=== PATIENT | male | born 1960 | race African-American/Black ===

== ENCOUNTER 2020-07-16 21:20 | Inpatient (IN) | payer MEDICARE, OTHER ==
[~2020-07-16] VITALS: Ht 182.9 cm; Wt 111.1 kg
[2020-07-16] MEDS ORDERED: MAGNESIUM HYDROXIDE 30 ML UDC PO PRN (23:30)
[2020-07-16] MEDS ORDERED: LORAZEPAM 0.5 MG TABLET PO PRN (23:30)
[2020-07-16] MEDS ORDERED: ACETAMINOPHEN 325 MG TABLET PO PRN (23:30)
[2020-07-16] MEDS ORDERED: BLOOD SUGAR DIAGNOSTIC 1 EACH STRIP IN ONE (23:30)
[2020-07-16] MEDS ORDERED: MAG HYDROX/AL HYDROX/SIMETH 30 ML UDC PO PRN (23:30)
[2020-07-16] MEDS ORDERED: TEMAZEPAM 7.5 MG CAPSULE PO PRN (23:30)
[2020-07-16 23:35] VITALS: BP 106/72
[2020-07-17] MEDS ORDERED: INSULIN REGULAR, HUMAN 100 UNIT/ML 3 ML VIAL SQ PRN (02:30)
[2020-07-17] MEDS ORDERED: DEXTROSE 50%-WATER 50 ML DISP.SYRIN IV PRN (02:30)
--- NOTE | 2020-07-17 03:28 | NUR ---
GPS RN NOTES: RECEIVED PATIENT FROM [facility]. PATIENT ARRIVED ON THIS UNIT AT 2300 VIA STRETCHER WITH 2 EMT STAFF. PATIENT ADMITTED ON VOLUNTARY STATUS. PER REPORT, PATIENT ASKED FOR VOLUNTARY ADMISSION. PER PATIENT HE HAS NOT BEEN MED COMPLIANT, HEARING VOICES, AND HAS SUICIDE IDEATION. UPON FACE TO FACE EVALUATION, PATIENT PRESENTS A/O X3, BLUNT AFFECT, DISHEVELED, COOPERATIVE. NO S/S OF DISTRESS. NO COMPLAINS OF PAIN. RESPIRATION EVEN AND UNLABORED WITH EQUAL RISE AND FALL OF THE CHEST ON ROOM AIR. DENIES SUICIDAL IDEATIONS AT THIS TIME. PATIENT SIGNED ALL PAPER WORK, MRSA SWAP DONE, BS 165MG/DL. SKIN INTACT. PATIENT RIGHTS BOOKLET GIVEN. PATIENT IS UNDER THE PSYCHIATRIC CARE OF [facility]. BOTH DOCTORS INFORMED OF PATIENT ADMISSION AND ORDER CARRIED OUT. PATIENT BELONGINGS WERE INVENTORIED AND CHECKED FOR CONTRABAND. IMMUNIZATIONS QUESTIONER AND NECESSARY PAPER WORK COMPLETED. PATIENT REFUSED PNA AND FLU VACCINES. PATIENT ORIENTED TO ROOM, FLOOR AND STAFF WITH ALL QUESTIONS ANSWERED. PATIENT EDUCATED ON THE USE OF CALL CHAVEZ. PATIENT BED SIDE RAILS UP X2 FOR SAFETY. PATIENT BED IS LOCKED AND IN LOWEST POSITION. Q15 MINUTES ROUNDS INITIATED. PATIENT CURRENTLY SLEEPING. WILL CONTINUE TO MONITOR PATIENT FOR SAFETY, MOOD, AND BEHAVIOR.
[2020-07-17] MEDS ORDERED: BLOOD SUGAR DIAGNOSTIC 1 EACH STRIP IN SCH (07:30)
[2020-07-17 08:00] VITALS: BP 100/66
--- NOTE | 2020-07-17 08:00 | NUR ---
RN NOTE- MED RECON REVIEWED Gino CANO. PT STATES ON METFORMIN AND CVHOLESTEROL RX BUT DOESNT KNOW DOSE. [facility] ISSUED. JEROME CONTACTED [facility].
[2020-07-17] MEDS ORDERED: UNK CHOLESTEROL PO (08:25)
[2020-07-17] MEDS ORDERED: METF-440 PO (08:25)
--- NOTE | 2020-07-17 09:00 | NUR ---
RN NOTE- PT DEPRESSED BLUNTED AFFECT MONO SYLLABIC RESPONSES TO QUERY MED COMPLIANT AND PO INTAKE IS GOOD DENIES ALL "I FEEL PRETTY DOWN"
[2020-07-17] MEDS ORDERED: ARIPIPRAZOLE 5 MG TABLET PO PRN (12:30)
[2020-07-17] MEDS: ARIPIPRAZOLE 5 MG TABLET PO SCH (14:29)
--- NOTE | 2020-07-17 15:05 | NUR ---
Substance Abuse Intervention: SW conducted a substance abuse intervention due to his alcohol, cannabis and cocaine abuse.
[2020-07-17 16:00] VITALS: BP 103/66
[2020-07-17] MEDS: METFORMIN 500 MG TABLET PO SCH (16:50)
[2020-07-17] MEDS ORDERED: LORAZEPAM 0.5 MG TABLET PO PRN (17:30)
[2020-07-17 18:57] LABS: CHOLESTEROL 175 mg/dL (<200); HDL CHOLESTEROL 44 mg/dL (40-60); LDL 103 mg/dL (0-99); TRIGLYCERIDES 187 mg/dL (30-150)
[2020-07-17 19:03] LABS: ALBUMIN 3.3 g/dL (3.4-5.0); BILIRUBIN,TOTAL 0.2 mg/dL (0.2-1.0); CALCIUM, SERUM 8.7 mg/dL (8.5-10.1); CREATININE 1.1 mg/dL (0.6-1.3); TOTAL PROTEIN, SERUM 6.9 g/dL (6.4-8.2)
[2020-07-17 20:00] VITALS: BP 103/59
[2020-07-17] MEDS: ATORVASTATIN 10 MG TABLET PO SCH (21:08)
--- NOTE | 2020-07-18 06:24 | NUR ---
RN NOTES: PATIENT RESTING IN ROOM. NO S/S OF DISTRESS. NO BEHAVIOR PROBLEMS NOTED AND NO CHANGE OF CONDITION NOTED, SAFETY PRECAUTION MAINTAINED, ALL PATIENT CARE NEEDS MET AT THIS TIME. WILL CONTINUE TO MONITOR PATIENT FOR MOOD, BEHAVIOR AND SAFETY AND ENDORSE TO AM SHIFT FOR CONTINUITY CARE.
[2020-07-18 08:00] VITALS: BP 101/63
[2020-07-18] MEDS: METFORMIN 500 MG TABLET PO SCH ×2 (08:52→17:08)
[2020-07-18] MEDS: ARIPIPRAZOLE 5 MG TABLET PO SCH (08:52)
[2020-07-18] MEDS: ASPIRIN 81 MG TAB.CHEW PO SCH (08:52)
--- NOTE | 2020-07-18 09:00 | NUR ---
RN NOTE- PT DEPRESSED BLUNTED AFFECT MONO SYLLABIC RESPONSES TO QUERY MED COMPLIANT AND PO INTAKE IS GOOD DENIES ALL WANTS TO DC TODAY OR TOMORROW. PT IS VOL
[2020-07-18 16:00] VITALS: BP 112/75
--- NOTE | 2020-07-18 16:38 | NUR ---
[facility] Contact: STEVENSON sent a referral to [facility] with attn to Pili Dejesus to the fax number: [phone].
[2020-07-18 20:14] VITALS: BP 118/60
[2020-07-18] MEDS: ATORVASTATIN 10 MG TABLET PO SCH (21:32)
--- NOTE | 2020-07-19 07:30 | NUR ---
RESTING IN BED IN RM.NO APPARENT DISTRESS.
[2020-07-19 08:00] VITALS: BP 110/63
[2020-07-19] MEDS: ARIPIPRAZOLE 5 MG TABLET PO SCH (09:08)
[2020-07-19] MEDS: METFORMIN 500 MG TABLET PO SCH ×2 (09:08→17:36)
[2020-07-19] MEDS: ASPIRIN 81 MG TAB.CHEW PO SCH (09:08)
--- NOTE | 2020-07-19 10:43 | NUR ---
[facility] Contact: Lucretia ([phone]) from [facility] contacted the SW and stated that she wanted updated notes from the SW faxed to [phone] which the SW sent. Lucretia then stated that she will speak to the pt by calling the nursing station after reviewing the documents.
--- NOTE | 2020-07-19 13:50 | NUR ---
DR. PROCTOR IN,MAKING ARRANGEMENTS FOR DISCHARGE PROBABLY TOMORROW.
--- NOTE | 2020-07-19 15:27 | NUR ---
Initial Discharge Plan: Pt currently resides at his apartment located at [address], [address], [place], [address]. Per pt, he would like a treatment center. SW will work with the pt and the pts MD regarding appropriate discharge planning. SW will form a safe and proper discharge.
--- NOTE | 2020-07-19 15:27 | NUR ---
[facility] Contact: Lucretia ([phone]) from [facility] contacted the SW and stated that she would accept the pt for tomorrow.
[2020-07-19 16:00] VITALS: BP 105/73
[2020-07-19 19:51] VITALS: BP 134/70
[2020-07-19] MEDS: ATORVASTATIN 10 MG TABLET PO SCH (20:49)
--- NOTE | 2020-07-20 07:30 | NUR ---
RN OPEN NOTES PT. LAYING IN BED RESTING. NO DISTRESS OR AGITATION NOTED, ROOM AIR. QUIET AND ISOLATIVE AT THIS TIME. NO C/O PAIN OR DISCOMFORT. SAFETY ENVIRONMENT OBSERVED AT ALL TIMES. WILL CONTINUE TO MONITOR Q 15 MIN FOR SAFETY AND BEHAVIOR.
[2020-07-20 08:00] VITALS: BP 121/67
[2020-07-20] MEDS: ASPIRIN 81 MG TAB.CHEW PO SCH (08:59)
[2020-07-20] MEDS: METFORMIN 500 MG TABLET PO SCH (08:59)
[2020-07-20] MEDS: ARIPIPRAZOLE 5 MG TABLET PO SCH (08:59)
--- NOTE | 2020-07-20 09:30 | NUR ---
RN-CO: DR PROCTOR GAVE AN ORDER TO DISCHARGE PATIENT TODAY, NOTED. PATIENT IS ALERT AND ORIENTED X4. ABLE TO MAKE NEEDS KNOWN AND SELF CARE. HE WAS MEDICALLY CLEARED FOR DISCHARGE. HE DENIED SI/HI, AH/ VH. ALL BELONGINGS WILL BE GIVEN BACK TO THE PT. DISCHARGE PAPERS WERE EXPLAINED AND HIS PRESCRIPTIONS AND HE VERBALIZED UNDERSTANDING.HE WILL BE PICKED UP BY A TAXI.
--- NOTE | 2020-07-20 12:00 | NUR ---
RN-CO: Patient was instructed to make a follow up appointment to alteration workroom supervisor and psychiatrist within a month and as needed. Call 911 for emergency.
--- NOTE | 2020-07-20 12:08 | NUR ---
Discharge Note: Pt was discharged to [facility] Address: [address] [address]; [phone] via [employer]. Pt did not have any family to notify. Pt was discharged at 1PM. Upon discharge, the pt appeared to be in a euthymic mood and presented with a calm affect. Pt denied both suicidal and homicidal ideation as well as auditory and visual hallucinations. Pt appeared to be alert and oriented x4 (time, place, self, and situation). Pt appeared to be ambulatory with an unsteady gait. Pt appeared to be well groomed and appropriately dressed. Pt was provided with substance abuse referrals. Pt will be under the care of sand cleaning machine operator, Dr. Karen Plunkett, located at [address] [address] and psychiatrist, Dr. Bhavin Meraz, [place] [address] [place] [address] . The multidisciplinary exit care form was done, printed, signed, and given to the patient.
--- NOTE | 2020-07-20 13:15 | NUR ---
RNObeyCO: MED RECONCILIATION WAS FAXED TO [facility]. TEL; [phone], FAX: [phone]
--- NOTE | 2020-07-20 14:09 | NUR ---
DISCHARGE NOTES Pt was discharged to [facility] Address: [address] [address]; [phone] via [employer]. Pt did not have any family to notify. Pt denied both suicidal and homicidal ideation as well as auditory and visual hallucinations. A/O x 4 with no signs of distress in room air and denied any pain at this time. Vital signs are within normal limit, and remained afebrile. Discharge paperwork and instructions was completed and verbalized understanding by the patient. Belonging list was completed and signed by patient. Patient exit out from GPS unit by GIFT SHOP MANAGER ambulatory with a steady gait. Taxi picked patient up at the lobby with voucher.
== END 2020-07-20 14:09 | DRG 885 ==
LOC: GPS 22:52
PROVIDERS: ADMIT Psychiatry & Neurology Psychosomatic Medicine; ATTEND Nurse Practitioner Acute Care
DX: F29 Unspecified psychosis not due to a substance or known physiological condition (principal); E11.65 Type 2 diabetes mellitus with hyperglycemia; F41.9 Anxiety disorder, unspecified; E78.1 Pure hyperglyceridemia; E88.09 Other disorders of plasma-protein metabolism, not elsewhere classified; F32.9 Major depressive disorder, single episode, unspecified; I10 Essential (primary) hypertension; F25.9 Schizoaffective disorder, unspecified; Z72.89 Other problems related to lifestyle; F14.90 Cocaine use, unspecified, uncomplicated; Z79.84 Long term (current) use of oral hypoglycemic drugs; Z20.822 Contact with and (suspected) exposure to COVID-19
CPT/HCPCS: 36415; 80053-TC; 80061-TC; 82962-TC; 87081-TC; J1815